=== PATIENT | female | born 1940 | race Caucasian/White ===

== ENCOUNTER 2017-12-19 12:00 | Emergency (ER) | payer MEDICARE, OTHER ==
[2017-12-19] MEDS ORDERED: NS(*) 0.9% 500 ML BAG 500 ML IV ONE (12:04)
--- NOTE | 2017-12-19 12:04 | ER Report ---
History and Physical Time Seen By MD: 12:03 (DELROY GRAHAM MD) HPI/ROS CHIEF COMPLAINT: Confusion HISTORY OF PRESENT ILLNESS: Patient is a 77-year-old female who hails from [facility] and is currently staying in a cabin in [facility]. She is accompanied by her who states that she has been having confusion and global weakness for the past few days. Both the patient and her are asked routinely poor historians and are unable to give even simple information regarding her past medical history, current medications and are unable to give a detailed history of present illness as to why they are here other than confusion. Patient is able to tell me that she had a brain aneurysm that was clipped in 1999 and that she has residual vertigo from that. The further offers that this past Monday she did fall but patient states she did not strike her head or lose consciousness. Patient denies any pain or discomfort. She denies ever having a prior heart attack or stroke. He denies diabetes but does report hypertension as one of her medical problems. REVIEW OF SYSTEMS: Constitutional: No fever, no chills. Eyes: No discharge. ENT: No sore throat. Cardiovascular: No chest pain, no palpitations. Respiratory: No cough, no shortness of breath. Gastrointestinal: No abdominal pain, no vomiting. Genitourinary: No hematuria. Musculoskeletal: No back pain. Skin: No rashes. Neurological: No headache. Confusion, global weakness (DELROY GRAHAM MD) Allergies: Coded Allergies: Sulfonylureas (Verified Allergy, Mild, HIVES, 12/19/17) amoxicillin (Verified Allergy, Mild, HIVES, 12/19/17) naproxen (Verified Allergy, Mild, NAUSEA, 12/19/17) NSAIDS (Non-Steroidal Anti-Inflamma (Verified Allergy, Unknown, 12/19/17) Home Meds Reported Medications Atenolol (ATENOLOL) 50 Mg Tablet, 1 TAB PO QDAY, TAB 12/19/17 Triamterene/Hydrochlorothiazid (MAXZIDE 37.5 MG-25 MG TABLET) 1 Each Tablet, 1 EACH PO DAILY 12/19/17 Aspirin (ASPIR 81) 81 Mg Tablet.dr, 81 MG PO QDAY, TAB 12/19/17 Methocarbamol (METHOCARBAMOL) 500 Mg Tablet, 500 MG PO QID Y for PRN 12/19/17 Gabapentin (GABAPENTIN) 300 Mg Capsule, 600 MG PO TID, CAPSULE 12/19/17 Valsartan (DIOVAN) 80 Mg Tablet, 80 MG PO DAILY 12/19/17 Past Medical/Surgical History Past medical history which was obtained from the patient's medical records show the following on her problem list. History of cerebral aneurysm repair in 1999, history of FANCY SEWER shunt, chronic, status post cervical spinal fusion, chronic renal disease stage III, history of closed fracture of the humerus on the right, history of hyponatremia history of osteo-porosis. Patient has allergy reported to the following medications NSAIDs, amoxicillin, sulfonylureas (DELROY GRAHAM MD) Constitutional Vital Sign - Last 24 Hours 12/19/17 12:08 Temp 98.1 Pulse 90 Resp 18 B/P (MAP) 189/99 Pulse Ox 94 O2 Delivery Room Air ([facility]) Physical Exam General/Constitutional: Patient is awake, alert, nontoxic and in no acute respiratory distress. Head: Normocephalic and atraumatic. Eyes: Conjunctival clear, Pupils are equal and reactive to light. Extraocular muscles are intact and symmetrical. Sclera are clear and anicteric. Ears:External canals are clear. Tympanic membranes are clear with normal landmarks and light reflex. Nares: No rhinorrhea or bleeding. Turbinates are pink and moist. Oropharyngeal: Mucous membranes are moist. There is no pharyngeal erythema or exudate. There are no palatal petechiae. Uvula is midline and symmetrical. Neck: Supple, no adenopathy. Cardiovascular: Heart is regular rate and rhythm without audible murmurs, rubs or gallops. Pulmonary: Lungs are clear to auscultation bilaterally. There are no wheezes, rales, or rhonchi. Chest rise is symmetrical Abdomen: Soft, nontender, no guarding or peritoneal signs. Extremities: No gross deformities, No peripheral cyanosis. Able to move all 4 extremities. Neuro: Alert and oriented X3, Cranial nerves 2 thru 12 are intact and symmetrical, patient is able to speak in full sentences thought process is logical and goal-directed. Patient appears to have no focal motor or sensory deficits. Patient does seem to have difficulty with recent memory. Skin: No rashes, skin is warm dry and well perfused. (DELROY GRAHAM MD) Medical Decision Making Data Points Result Diagram: 12/19/17 1225 12/19/17 1225 Laboratory Hematology Test 12/19/17 12:25 12/19/17 13:51 Red Blood Count 4.01 M/uL (4.17-5.56) Mean Corpuscular Volume 89.4 fL (80.0-96.0) Mean Corpuscular Hemoglobin 31.6 pg (26.0-33.0) Mean Corpuscular Hemoglobin Concent 35.4 g/dL (32.0-36.0) Red Cell Distribution Width 13.3 % (11.5-14.5) Mean Platelet Volume 8.0 fL (7.2-11.1) Neutrophils (%) (Auto) 66.2 % (39.4-72.5) Lymphocytes (%) (Auto) 17.5 % (17.6-49.6) Monocytes (%) (Auto) 15.2 % (4.1-12.4) Eosinophils (%) (Auto) 0.4 % (0.4-6.7) Basophils (%) (Auto) 0.7 % (0.3-1.4) Nucleated RBC Relative Count (auto) 0.0 /100WBC Neutrophils # (Auto) 4.5 K/uL (2.0-7.4) Lymphocytes # (Auto) 1.2 K/uL (1.3-3.6) Monocytes # (Auto) 1.0 K/uL (0.3-1.0) Eosinophils # (Auto) 0.0 K/uL (0.0-0.5) Basophils # (Auto) 0.0 K/uL (0.0-0.1) Nucleated RBC Absolute Count (auto) 0.00 K/uL Peripheral Blood Smear No Y/N Sodium Level 137 mmol/L (137-145) Potassium Level 3.1 mmol/L (3.5-5.0) Chloride Level 103 mmol/L (98-107) Carbon Dioxide Level 22 mmol/L (22-31) Blood Urea Nitrogen 23 mg/dl (7-18) Creatinine 1.10 mg/dl (0.52-1.04) Glomerular Filtration Rate Calc 48.0 Random Glucose 106 mg/dl (75-110) Lactate 1.8 mmol/L (0.7-2.1) Calcium Level 9.2 mg/dl (8.4-10.2) Total Bilirubin 1.0 mg/dl (0.2-1.3) Aspartate Amino Transf (AST/SGOT) 30 U/L (0-35) Alanine Aminotransferase (ALT/SGPT) 23 U/L (0-56) Alkaline Phosphatase 68 U/L (0-126) Ammonia < 9 UMOL/L (9-33) Total Creatine Kinase 205 U/L (30-135) Troponin I < 0.012 ng/ml Total Protein 6.4 g/dl (6.3-8.2) Albumin 3.9 g/dl (3.5-5.0) Thyroid Stimulating Hormone (TSH) 6.78 uIU/ml (0.46-4.68) Serum Alcohol < 10 mg/dl Urine Color Yellow Urine Clarity Clear Urine pH 7.0 pH (4.8-9.5) Urine Specific Florence 1.014 Urine Protein Negative mg/dL (NEGATIVE) Urine Glucose (UA) Negative mg/dL (NEGATIVE) Urine Ketones 20 mg/dL (NEGATIVE) Urine Blood Small (NEGATIVE) Urine Nitrite Negative (NEGATIVE) Urine Bilirubin Negative (NEGATIVE) Urine Urobilinogen Negative mg/dL (0.2-1.9) Urine Leukocyte Esterase Negative (NEGATIVE) Urine RBC 3 /HPF (0-2/HPF) Urine WBC <1 /HPF (0-5/HPF) Urine Squamous Epithelial Cells Few /LPF (NONE-FEW) Urine Bacteria Negative /HPF (NONE-FEW) Urine Mucus None /HPF (NONE-FEW) Urine Opiates Screen Negative Urine Barbiturates Screen Negative Ur Tricyclic Antidepressants Screen Negative Urine Phencyclidine Screen Negative Urine Amphetamines Screen Negative Urine Benzodiazepines Screen Negative Urine Cocaine Screen Negative Urine Cannabinoids Screen Negative Chemistry Test 12/19/17 12:25 12/19/17 13:51 White Blood Count 6.8 k/uL (4.5-11.0) Red Blood Count 4.01 M/uL (4.17-5.56) Hemoglobin 12.7 g/dL (12.0-16.0) Hematocrit 35.9 % (34.0-47.0) Mean Corpuscular Volume 89.4 fL (80.0-96.0) Mean Corpuscular Hemoglobin 31.6 pg (26.0-33.0) Mean Corpuscular Hemoglobin Concent 35.4 g/dL (32.0-36.0) Red Cell Distribution Width 13.3 % (11.5-14.5) Platelet Count 166 K/uL (150-450) Mean Platelet Volume 8.0 fL (7.2-11.1) Neutrophils (%) (Auto) 66.2 % (39.4-72.5) Lymphocytes (%) (Auto) 17.5 % (17.6-49.6) Monocytes (%) (Auto) 15.2 % (4.1-12.4) Eosinophils (%) (Auto) 0.4 % (0.4-6.7) Basophils (%) (Auto) 0.7 % (0.3-1.4) Nucleated RBC Relative Count (auto) 0.0 /100WBC Neutrophils # (Auto) 4.5 K/uL (2.0-7.4) Lymphocytes # (Auto) 1.2 K/uL (1.3-3.6) Monocytes # (Auto) 1.0 K/uL (0.3-1.0) Eosinophils # (Auto) 0.0 K/uL (0.0-0.5) Basophils # (Auto) 0.0 K/uL (0.0-0.1) Nucleated RBC Absolute Count (auto) 0.00 K/uL Peripheral Blood Smear No Y/N Glomerular Filtration Rate Calc 48.0 Lactate 1.8 mmol/L (0.7-2.1) Calcium Level 9.2 mg/dl (8.4-10.2) Total Bilirubin 1.0 mg/dl (0.2-1.3) Aspartate Amino Transf (AST/SGOT) 30 U/L (0-35) Alanine Aminotransferase (ALT/SGPT) 23 U/L (0-56) Alkaline Phosphatase 68 U/L (0-126) Ammonia < 9 UMOL/L (9-33) Total Creatine Kinase 205 U/L (30-135) Troponin I < 0.012 ng/ml Total Protein 6.4 g/dl (6.3-8.2) Albumin 3.9 g/dl (3.5-5.0) Thyroid Stimulating Hormone (TSH) 6.78 uIU/ml (0.46-4.68) Serum Alcohol < 10 mg/dl Urine Color Yellow Urine Clarity Clear Urine pH 7.0 pH (4.8-9.5) Urine Specific Florence 1.014 Urine Protein Negative mg/dL (NEGATIVE) Urine Glucose (UA) Negative mg/dL (NEGATIVE) Urine Ketones 20 mg/dL (NEGATIVE) Urine Blood Small (NEGATIVE) Urine Nitrite Negative (NEGATIVE) Urine Bilirubin Negative (NEGATIVE) Urine Urobilinogen Negative mg/dL (0.2-1.9) Urine Leukocyte Esterase Negative (NEGATIVE) Urine RBC 3 /HPF (0-2/HPF) Urine WBC <1 /HPF (0-5/HPF) Urine Squamous Epithelial Cells Few /LPF (NONE-FEW) Urine Bacteria Negative /HPF (NONE-FEW) Urine Mucus None /HPF (NONE-FEW) Urine Opiates Screen Negative Urine Barbiturates Screen Negative Ur Tricyclic Antidepressants Screen Negative Urine Phencyclidine Screen Negative Urine Amphetamines Screen Negative Urine Benzodiazepines Screen Negative Urine Cocaine Screen Negative Urine Cannabinoids Screen Negative Toxicology Test 12/19/17 12:25 12/19/17 13:51 Serum Alcohol < 10 mg/dl Urine Opiates Screen Negative Urine Barbiturates Screen Negative Ur Tricyclic Antidepressants Screen Negative Urine Phencyclidine Screen Negative Urine Amphetamines Screen Negative Urine Benzodiazepines Screen Negative Urine Cocaine Screen Negative Urine Cannabinoids Screen Negative Urinalysis Test 12/19/17 13:51 Urine Color Yellow Urine Clarity Clear Urine pH 7.0 pH (4.8-9.5) Urine Specific Florence 1.014 Urine Protein Negative mg/dL (NEGATIVE) Urine Glucose (UA) Negative mg/dL (NEGATIVE) Urine Ketones 20 mg/dL (NEGATIVE) Urine Blood Small (NEGATIVE) Urine Nitrite Negative (NEGATIVE) Urine Bilirubin Negative (NEGATIVE) Urine Urobilinogen Negative mg/dL (0.2-1.9) Urine Leukocyte Esterase Negative (NEGATIVE) Urine RBC 3 /HPF (0-2/HPF) Urine WBC <1 /HPF (0-5/HPF) Urine Squamous Epithelial Cells Few /LPF (NONE-FEW) Urine Bacteria Negative /HPF (NONE-FEW) Urine Mucus None /HPF (NONE-FEW) (NKECHI JACKSON DO) EKG/Imaging EKG Interpretation EKG shows normal sinus rhythm with ventricular rate of 83 bpm. There are no prior EKGs to compare with. Monitor Interpretation: Normal Sinus Rhythm Imaging [place] [facility] [place] NAME: Madelyn Adkins : 1940 MR: [id number] V: [id number] EXAM DATE: ORDERING PHYSICIAN: DELROY GRAHAM TECHNOLOGIST: Location: [facility] - [place] Patient: Madelyn Adkins : 1940 Visit/Account:[id number] Date of Sevice: 12/19/2017 EXAMINATION: Head CT without intravenous contrast HISTORY: Altered mental status, history of stroke in 1999 TECHNIQUE: Contiguous axial images were obtained from the skull base to the vertex without intravenous contrast. Sagittal and coronal reformatted images are also submitted. Dose Lowering Technique One of the following dose optimization techniques was utilized in the performance of this exam: Automated exposure control; adjustment of the mA and/ or kV according to the patient's size; or use of an iterative reconstruction technique. Specific details can be referenced in the facility's radiology CT exam operational policy. COMPARISON: None. FINDINGS: Brain volume: Normal. Ventricles: There Is no evidence of hydrocephalus. There is a left frontal ventricular shunt in place Acute ischemic changes: None. Hemorrhage: None. Masses / edema: None. Martinez-white: Negative. White matter: There is a small focal area of encephalomalacia in the posterior right frontal lobe adjacent to a craniotomy site Vessels: Extensive vascular calcifications are seen in the carotid siphons middle cerebral arteries and vertebral arteries Extra-axial: Negative. Calvarium / scalp: There is a craniotomy defect in the right frontal temporal region. There are metallic densities seen deep to the craniotomy site and anterior right temporal region Skull base / visualized face: Negative. Visualized sinuses / orbits: Negative. IMPRESSION: Post surgical changes from a right frontotemporal craniotomy with a focal area of encephalomalacia in the posterior right frontal lobe. Metallic densities are also seen deep to the craniotomy site along the anterior right temporal lobe No evidence of acute intracranial hemorrhage, edema or hydrocephalus. Left frontal ventricular shunt Extensive vascular calcifications Report Dictated By: Carolina Bustamante MD at 12/19/2017 1:29 PM Report E-Signed By: Carolina Bustamante MD at 12/19/2017 1:35 PM WSN:[email or web address] (DELROY GRAHAM MD) ED Course/Re-evaluation Clinical Indication for ER IV: Hydration, IV Access ED Course 12/19/2017 12:32:47 pm patient is an extremely poor historian. Her symptoms are very vague and nonspecific. She is afebrile with normal vital signs on initial presentation. Plan at this time will be an altered mental status workup. We'll attempt to obtain records from her primary care physician as well as obtaining her current medication list. Decision to Disposition Date: Dec 19, 2017 Decision to Disposition Time: 18:00 (DELROY GRAHAM MD) ED Course 12/19/2017 5:00:28 pm Pt signed out to me pending pts CTA of head and neck. Radiologist just called me with verbral report. States that there is no findings of concern at this time. He did see two mall focal areas 1mm on R and 2.4mm on left mca that he was unable to determine if was pts normal varient vs small focal aneursym without comparing to olds. it is his recommendation for pt to follow up with there neurosurgeon and compare todays images with priors or to obtain repeat scans in few months. Spoke with family . They are going back home on . They feel comfortable going home and following up with there neurosurgeon in [facility] when they come back home. Decision to Disposition Date: Dec 19, 2017 Decision to Disposition Time: 17:04 (NKECHI JACKSON DO) Depart Departure Latest Vital Signs Vital Signs Date Time Temp Pulse Resp B/P (MAP) Pulse Ox O2 Delivery O2 Flow Rate FiO2 12/19/17 12:08 98.1 90 18 189/99 94 Room Air (NKECHI JACKSON DO) Impression: Primary Impression: Weakness Additional Impression: Transient confusion Condition: Improved Disposition: HOME OR SELF-CARE Patient Instructions: GENERAL ER DISCHARGE INSTRUCTIONS Additional Instructions: We did not find anything acute at this time. We are sending you home with a disc that contains all of your images from today. When you get home please send your images to your neurosurgeon so that they can compare with prior images to make sure that no changes from your prior images were identified. Return for any concerns. Problem Qualifiers DELROY GRAHAM MD Dec 19, 2017 12:04 NKECHI JACKSON DO Dec 19, 2017 17:06
[2017-12-19 12:08] VITALS: BP 189/99
--- NOTE | 2017-12-19 12:18 | EKG ---
[place] [facility] [place] NAME: MAURILIO HARRIS : [id number] MR: [id number] V: [id number] EXAM DATE: ORDERING PHYSICIAN: DELROY GRAHAM TECHNOLOGIST: CHRISTOPHER Hweitt Reason : Blood Pressure : / mmHG Vent. Rate : 083 BPM Atrial Rate : 084 BPM P-R Int : 172 ms QRS Dur : 076 ms QT Int : 420 ms P-R-T Axes : 058 -22 017 degrees QTc Int : 493 ms Normal sinus rhythm Cannot rule out Anterior infarct , age undetermined Abnormal ECG No previous ECGs available Confirmed by Guille Massey ([id number]) on 12/19/2017 1:11:00 PM Referred By: Confirmed By:Guille Ley
[2017-12-19 12:37] LABS: PLATELET COUNT, AUTOMATED 166 K/uL (150-450)
--- NOTE | 2017-12-19 12:47 | RADIOLOGY IMAGING REPORT ---
FACILITY: [facility] PATIENT NAME: Madelyn Adkins : 1940 MR: [id number] V: [id number] EXAM DATE: ORDERING PHYSICIAN: DELROY GRAHAM TECHNOLOGIST: Location: [facility] - [place] Patient: Madelyn Adkins : 1940 Visit/Account:[id number] Date of Sevice: 12/19/2017 Study: Single portable view of the chest. Indication: Mental status Comparison study: None. Technique: Single AP view of the chest demonstrates no evidence of acute infiltrate. There is no evid ence of pleural effusion or pneumothorax. The mediastinal, cardiac, and diaphragmatic contours are un remarkable. There is a ventriculoperitoneal shunt catheter traversing the left hemithorax. IMPRESSION: Unremarkable chest. Report Dictated By: Dale Costa at 12/19/2017 12:41 PM Report E-Signed By: Dale Costa at 12/19/2017 12:42 PM WSN:[email or web address]
[2017-12-19] MEDS ORDERED: METH-278 PO (13:25)
[2017-12-19] MEDS ORDERED: ATEN-1 PO (13:25)
[2017-12-19] MEDS ORDERED: ASPI-1471 PO (13:25)
[2017-12-19] MEDS ORDERED: TRIA-19 PO (13:25)
[2017-12-19] MEDS ORDERED: GABA-549 PO (13:25)
[2017-12-19] MEDS ORDERED: VAL80 PO (13:25)
--- NOTE | 2017-12-19 13:39 | RADIOLOGY IMAGING REPORT ---
FACILITY: [facility] - [place] PATIENT NAME: Madelyn Adkins : 1940 MR: [id number] V: [id number] EXAM DATE: ORDERING PHYSICIAN: DELROY GRAHAM TECHNOLOGIST: Location: [facility] Patient: Madelyn Adkins : 1940 Visit/Account:[id number] Date of Sevice: 12/19/2017 EXAMINATION: Head CT without intravenous contrast HISTORY: Altered mental status, history of stroke in 1999 TECHNIQUE: Contiguous axial images were obtained from the skull base to the vertex without intraven ous contrast. Sagittal and coronal reformatted images are also submitted. Dose Lowering Technique One of the following dose optimization techniques was utilized in the performance of this exam: Autom ated exposure control; adjustment of the mA and/or kV according to the patient's size; or use of an i terative reconstruction technique. Specific details can be referenced in the facility's radiology C T exam operational policy. COMPARISON: None. FINDINGS: Brain volume: Normal. Ventricles: There Is no evidence of hydrocephalus. There is a left frontal ventricular shunt in plac e Acute ischemic changes: None. Hemorrhage: None. Masses / edema: None. Martinez-white: Negative. White matter: There is a small focal area of encephalomalacia in the posterior right frontal lobe ad jacent to a craniotomy site Vessels: Extensive vascular calcifications are seen in the carotid siphons middle cerebral arteries and vertebral arteries Extra-axial: Negative. Calvarium / scalp: There is a craniotomy defect in the right frontal temporal region. There are met allic densities seen deep to the craniotomy site and anterior right temporal region Skull base / visualized face: Negative. Visualized sinuses / orbits: Negative. IMPRESSION: Post surgical changes from a right frontotemporal craniotomy with a focal area of encephalomalacia in the posterior right frontal lobe. Metallic densities are also seen deep to the craniotomy site sharron g the anterior right temporal lobe No evidence of acute intracranial hemorrhage, edema or hydrocephalus. Left frontal ventricular shunt Extensive vascular calcifications Report Dictated By: Carolina Bustamante MD at 12/19/2017 1:29 PM Report E-Signed By: Carolina Bustamante MD at 12/19/2017 1:35 PM WSN:[email or web address]
[2017-12-19] MEDS ORDERED: NS 0.9% 25 ML BAG 50 ML ONE (14:49)
[2017-12-19] MEDS ORDERED: IOPAMIDOL 76% 100 ML INFUS BTL 100 ML ONE (14:49)
--- NOTE | 2017-12-19 15:10 | RADIOLOGY IMAGING REPORT ---
FACILITY: [facility] - [place] PATIENT NAME: Madelyn Adkins : 1940 MR: [id number] V: [id number] EXAM DATE: ORDERING PHYSICIAN: DELROY GRAHAM TECHNOLOGIST: Location: [facility] - [place] Patient: Madelyn Adkins : 1940 Visit/Account:[id number] Date of Sevice: 12/19/2017 Exam type: LUMBAR SPINE 2 OR 3 VIEW History: svp marketing shunt Comparison: None. Findings: There is a nonspecific bowel gas pattern present although the flanks are not included on the study. Shunt tubing projects over the left upper quadrant crossing the midline in the upper abdomen traverse s along the lateral aspect of the right abdomen extending into the pelvis where crosses midline towar ds the left. 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 The spondylotic changes lumbar spine noted IMPRESSION: 1. Shunt tubing as described Nonspecific bowel gas pattern Report Dictated By: Carolina Bustamante MD at 12/19/2017 3:03 PM Report E-Signed By: Carolina Bustamante MD at 12/19/2017 3:05 PM WSN:[email or web address]
[2017-12-19] MEDS ORDERED: NS 0.9% 25 ML BAG 25 ML ONE (15:12)
--- NOTE | 2017-12-19 15:12 | RADIOLOGY IMAGING REPORT ---
FACILITY: [facility] PATIENT NAME: Madelyn Adkins : 1940 MR: [id number] V: [id number] EXAM DATE: ORDERING PHYSICIAN: DELROY GRAHAM TECHNOLOGIST: Location: [facility] - [place] Patient: Madelyn Adkins : 1940 Visit/Account:[id number] Date of Sevice: 12/19/2017 Exam type: THORACIC SPINE 2 VIEW History: shunt series Comparison: Lumbar spine series. Findings: A single AP view of the thoracic spine was submitted Shunt tubing projects along the medial aspect the left thorax extending into the upper abdomen where it crosses midline towards the right. Incidentally noted are extensive spondylotic changes of the th oracic spine is suggestion of several compression fractures in the mid to lower thoracic spine althou gh a lateral view of the thoracic spine was not submitted. Postsurgical changes of the lower cervica l spine also incompletely imaged IMPRESSION: 1. Shunt tubing projects along the medial aspect left side the thorax Extensive spondylotic changes of the thoracic spine is suggestion of compression fractures in the mid to lower thoracic spine although the lateral view not obtained Report Dictated By: Carolina Bustamante MD at 12/19/2017 3:05 PM Report E-Signed By: Carolina Bustamante MD at 12/19/2017 3:08 PM WSN:[email or web address]
--- NOTE | 2017-12-19 15:14 | RADIOLOGY IMAGING REPORT ---
[place] [facility] [place] NAME: Maedlyn Adkins : 1940 MR: [id number] V: [id number] EXAM DATE: ORDERING PHYSICIAN: DELROY GRAHAM TECHNOLOGIST: Location: [facility] - [place] Patient: Madelyn Adkins : 1940 Visit/Account:[id number] Date of Sevice: 12/19/2017 Exam type: CERVICAL SPINE 2 OR 3 VIEW History: shunt series Comparison: Thoracic spine series performed today. Findings: AP and lateral views of cervical spine demonstrate anterior fusion from C3 to C7 with anterior plate and screws and intervertebral disc spacers. The vertebral bodies appear in relatively good anatomic alignment. Shunt tubing projects along the left side of the neck into the medial aspect of the visua lized upper left thorax. IMPRESSION: 1. Postsurgical changes of the cervical spine from anterior fusion from C3 to C7 Shunt tubing projects along the left side of the neck Report Dictated By: Carolina Bustamante MD at 12/19/2017 3:08 PM Report E-Signed By: Carolina Bustamante MD at 12/19/2017 3:10 PM WSN:[email or web address]
--- NOTE | 2017-12-19 15:19 | RADIOLOGY IMAGING REPORT ---
[place] [facility] [place] NAME: Madelyn Adkins : 1940 MR: [id number] V: [id number] EXAM DATE: ORDERING PHYSICIAN: DELROY GRAHAM TECHNOLOGIST: Location: [facility] - [place] Patient: Madelyn Adkins : 1940 Visit/Account:[id number] Date of Sevice: 12/19/2017 Exam type: CHEST SPECIAL VIEW History: vp revenue cycle shunt Comparison: AP chest performed today. Findings: A single lateral view of the chest demonstrates the shunt tubing project over the anterior aspect of the thorax. This was seen to be over the left side of the thorax on the AP chest. The lungs appear grossly free of consolidation. The cardiac silhouette does not appear enlarged. There are extensive spondylotic changes of thoracic spine and a severe compression fracture in the mid to lower thoracic spine. IMPRESSION: 1. Shunt tubing projects over the anterior aspect of the thorax (this was seen to be over the medial left thorax on the AP chest) Severe compression fracture in the mid to lower thoracic spine Report Dictated By: Carolina Bustamante MD at 12/19/2017 3:10 PM Report E-Signed By: Carolina Bustamante MD at 12/19/2017 3:14 PM WSN:[email or web address]
--- NOTE | 2017-12-19 17:03 | RADIOLOGY IMAGING REPORT ---
FACILITY: [facility] PATIENT NAME: Madelyn Adkins : 1940 MR: [id number] V: [id number] EXAM DATE: ORDERING PHYSICIAN: DELROY GRAHAM TECHNOLOGIST: Location: [facility] Patient: Madelyn Adkins : 1940 Visit/Account:[id number] Date of Sevice: 12/19/2017 EXAMINATION: CT head and neck angiogram HISTORY: Altered mental status TECHNIQUE: CT head and neck angiogram was performed following the iv injection 75 mL Isovue-370.. Sag ittal, coronal and oblique MIP reformations generated. Stenosis of the internal carotid arteries calc ulated using NASCET criteria. One of the following dose optimization techniques was utilized in the performance of this exam: autom ated exposure control; adjustment of the mA and/or kV according to patient size; or use of iterative reconstruction technique. Specific details can be referenced in the facility's radiology CT exam ope rational policy. COMPARISON: Head CT same day FINDINGS: Aortic arch and great vessels: Conventional anatomy. Normal. Cervical Right CCA / ICA: Bulb calcified plaque results in no stenosis, otherwise unremarkable. Cervical Left CCA / ICA: Bulb and proximal internal carotid artery calcified plaque results in no s tenosis, otherwise unremarkable. Vertebro-basilar: Left vertebral artery origin calcified plaque results in no significant stenosis, otherwise unremarkable. Internal carotid arteries from the skull base through cavernous carotid arteries: 1 mm outpouching em anates laterally off the right cavernous carotid, axial image 225, series 10. LIAT circulation: Normal. MCA circulation: Aneurysm clip in the distal right MCA M1 region. No apparent residual aneurysm in this area. Equivocal 2.4 mm left M2 segment aneurysm, series 10 axial image 197, sagittal image 129 series 7. [employer]N [employer] TECHNICIAN circulation: Normal. PICA/AICA/superior cerebellar arteries: Normal. Venous sinuses and peripheral intracranial vasculature: Normal. Intracranial structures: Left frontal approach ventriculostomy catheter with tip in the left lateral ventricle. Right frontal lobe encephalomalacia. Neck soft tissues: Normal. Upper chest: Minimal pulmonary fibrosis or chronic scarring in the upper lobes. Head and neck osseous structures: Multilevel anterior cervical spine fusion hardware. Right frontal a nd temporal region craniotomy postsurgical change. IMPRESSION: 1. 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 2. 1 mm vascular outpouching emanates laterally off the right cavernous carotid which may represent a tiny aneurysm or a benign infundibulum. 3. 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 This could alternatively represent focal ectasia. 3. Otherwise normal for age head and neck arterial vasculature. Findings discussed with the covering clinician at 1655. Report Dictated By: Satya Galindo MD at 12/19/2017 4:33 PM Report E-Signed By: Satya Galindo MD at 12/19/2017 4:59 PM WSN:[email or web address]
--- NOTE | 2017-12-19 17:03 | RADIOLOGY IMAGING REPORT ---
FACILITY: [facility] [place] PATIENT NAME: Madelyn Adkins : 1940 MR: [id number] V: [id number] EXAM DATE: ORDERING PHYSICIAN: DELROY GRAHAM TECHNOLOGIST: [place] [facility] [place] Madelyn Adkins : 1940 Visit/Account:[id number] Date of Sevice: 12/19/2017 EXAMINATION: CT head and neck angiogram HISTORY: Altered mental status TECHNIQUE: CT head and neck angiogram was performed following the iv injection 75 mL Isovue-370.. Sag ittal, coronal and oblique MIP reformations generated. Stenosis of the internal carotid arteries calc ulated using NASCET criteria. One of the following dose optimization techniques was utilized in the performance of this exam: autom ated exposure control; adjustment of the mA and/or kV according to patient size; or use of iterative reconstruction technique. Specific details can be referenced in the facility's radiology CT exam ope rational policy. COMPARISON: Head CT same day FINDINGS: Aortic arch and great vessels: Conventional anatomy. Normal. Cervical Right CCA / ICA: Bulb calcified plaque results in no stenosis, otherwise unremarkable. Cervical Left CCA / ICA: Bulb and proximal internal carotid artery calcified plaque results in no s tenosis, otherwise unremarkable. Vertebro-basilar: Left vertebral artery origin calcified plaque results in no significant stenosis, otherwise unremarkable. Internal carotid arteries from the skull base through cavernous carotid arteries: 1 mm outpouching em anates laterally off the right cavernous carotid, axial image 225, series 10. LIAT circulation: Normal. MCA circulation: Aneurysm clip in the distal right MCA M1 region. No apparent residual aneurysm in this area. Equivocal 2.4 mm left M2 segment aneurysm, series 10 axial image 197, sagittal image 129 series 7. BACCARAT MANAGER circulation: Normal. PICA/AICA/superior cerebellar arteries: Normal. Venous sinuses and peripheral intracranial vasculature: Normal. Intracranial structures: Left frontal approach ventriculostomy catheter with tip in the left lateral ventricle. Right frontal lobe encephalomalacia. Neck soft tissues: Normal. Upper chest: Minimal pulmonary fibrosis or chronic scarring in the upper lobes. Head and neck osseous structures: Multilevel anterior cervical spine fusion hardware. Right frontal a nd temporal region craniotomy postsurgical change. IMPRESSION: 1. 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 2. 1 mm vascular outpouching emanates laterally off the right cavernous carotid which may represent a tiny aneurysm or a benign infundibulum. 3. 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 This could alternatively represent focal ectasia. 3. Otherwise normal for age head and neck arterial vasculature. Findings discussed with the covering clinician at 1655. Report Dictated By: Satya Galindo MD at 12/19/2017 4:33 PM Report E-Signed By: Satya Galindo MD at 12/19/2017 4:59 PM WSN:[email or web address]
== END 2017-12-19 18:45 | disposition home or self-care (01) ==
LOC: ER 12:12
DX: R41.0 Disorientation, unspecified (principal); R53.1 Weakness; I12.9 Hypertensive chronic kidney disease with stage 1 through stage 4 chronic kidney disease, or unspecified chronic kidney disease; N18.3 Chronic kidney disease, stage 3 (moderate); Z79.899 Other long term (current) drug therapy
CPT/HCPCS: 36415; 70450; 70496; 70498; 71045; 71046; 72040; 72070; 72100; 80305; 81001; 82140; 82550; 83605; 84443; 84484; 85025; 87040; 87088; 93005; 99284; A4353; G0480; J7040; Q9967; 80320; 82040; 82247; 82310; 82374; 82435; 82565; 82947; 84075; 84132; 84155; 84295; 84450; 84460; 84520